=== PATIENT | male | born 2000 | race Caucasian/White ===

== ENCOUNTER 2018-01-05 18:50 | Emergency (ER) | payer BC ==
[~2018-01-05] VITALS: Ht 177.8 cm; Wt 81.8 kg
[~2018-01-05 18:50] MED LIST: VIVANCE
[2018-01-05 18:55] VITALS: BP 155/84
[2018-01-05] MEDS ORDERED: MOTRIN600 MG PO (19:12)
[2018-01-05] MEDS ORDERED: [UNRECOGNIZED DRUG - OTHER] TP (19:12)
== END 2018-01-05 19:23 | disposition home or self-care (01) ==
LOC: EME 18:50
DX: L55.0 Sunburn of first degree (principal)
CPT/HCPCS: 99281; 99284